=== PATIENT | male | born 1985 | race Caucasian/White ===

== ENCOUNTER 2025-03-21 23:46 | Emergency (ER) | payer OTHER ==
[~2025-03-21] VITALS: Ht 177.8 cm; Wt 70.3 kg
[~2025-03-21 23:46] MED LIST: BUPRENORPHINE HC8 MG SL; ERYT.5TO OD; OLAN5 PO
[2025-03-21 23:53] VITALS: BP 135/94
[2025-03-22] MEDS ORDERED: Trimethoprim/Sulfamethoxazole DS Tab PO ONE (00:15)
[2025-03-22] MEDS ORDERED: Ondansetron 4 MG SoluTab BC ONE (00:15)
[2025-03-22] MEDS ORDERED: HYDROcodone 10-APAP 325 TAB PO ONE (00:15)
[2025-03-22] MEDS ORDERED: FAMO20 PO (01:06)
[2025-03-22] MEDS ORDERED: IBU600 M1 PO (01:06)
[2025-03-22] MEDS ORDERED: SULTRIDS PO (01:06)
== END 2025-03-22 00:55 | disposition home or self-care (01) ==
LOC: ER 23:46
DX: L02.212 Cutaneous abscess of back [any part, except buttock and flank] (principal); F17.200 Nicotine dependence, unspecified, uncomplicated
CPT/HCPCS: 10061; 87070; 87075; 87077; 87186; 87205; 99283-25; A9270